=== PATIENT | male | born 1960 | race Two or more races ===

== ENCOUNTER 2024-08-16 12:55 | Emergency (ER) | payer MEDICAID, OTHER ==
[~2024-08-16] VITALS: Ht 172.7 cm; Wt 77.7 kg
--- NOTE | 2024-08-16 13:47 | DVH ---
EXAM: XY R KNEE 3V XRAY CLINICAL HISTORY: knee swellin COMPARISON: None TECHNIQUE: XY R KNEE 3V XRAY Findings/Impression: 3 views of the right knee. There is no evidence of an acute fracture, dislocation, blastic, or lytic lesions. No radiopaque foreign bodies. Moderate joint effusion.
[2024-08-16 14:36] VITALS: BP 141/86; PULSE 78; RESP 17; TEMP 98.4; O2SAT 97
[2024-08-16] MEDS ORDERED: PRED20TA2 PO (15:00)
[2024-08-16] MEDS ORDERED: COLC1CAP PO (15:00)
--- NOTE | 2024-08-16 15:00 | ED.PDOC ---
Musculoskeletal HPI Comments 58-year-old male presented to the [facility] complaining of right knee pain which is swollen for the past four days Chief Complaint: Lower Extremity Time Seen by MD: 13:38 Reviewed Notes: Nurses Notes, Medications, Allergies Allergies: Coded Allergies: NO KNOWN ALLERGIES (Unverified , 08/16/24) Home Meds Active Scripts Colchicine (Colchicine) 0.6 Mg Cap, 0.6 MG PO TID for 5 Days, #15 CAP Prov:LAUREL KEANE MD 08/16/24 Prednisone (Prednisone) 20 Mg Tab, 20 MG PO BID for 5 Days, #10 MG Prov:LAUREL KEANE MD 08/16/24 Information Source: Patient Mode of Arrival: Ambulatory Location: Right Extremity Location: Knee Timing: Days Severity: Moderate Able to Move Extremity: Yes Bear Weight: Limited Hand Dominance: Right Mechanism: No Trauma, Spontaneous Circumstances: Gout, Arthritis, Spontaneous Onset of Symptoms: Spontaneous Symptoms: Swelling, Pain, Warmth DVT Risk Factors: NONE History of: Gout, Arthritis Associated signs and symptoms: Swelling, Knee pain Past Medical History PAST MEDICAL HISTORY: Denies Surgical History (Other): Surgery Family History Family History: Reviewed,noncontributory to illness, No family hx of Cancer, No family hx of DM, No family hx of Heart glenn, No family hx of HTN, No family hx ofKidney glenn, No family hx of Liver glenn, No family hx of Lung glenn, No family hx of Stroke Social History Smoker: Cigarettes Alcohol: Denies ETOH Use Drugs: Denies Drug Use Lives In: Home Constitutional: denies: chills, diaphoresis, fatigue, fever, malaise, sweats, weakness, others EENTM: denies: blurred vision, double vision, ear bleeding, ear discharge, ear drainage, ear pain, ear ringing, eye pain, eye redness, hearing loss, mouth pain, mouth swelling, nasal discharge, nose bleeding, nose congestion, nose pain, photophobia, tearing, throat pain, throat swelling, voice changes, others Respiratory: denies: cough, hemoptysis, orthopnea, SOB at rest, shortness of breath, SOB with excertion, stridor, wheezing, others Cardiovascular: denies: chest pain, dizzy spells, diaphoresis, Dyspnea on exertion, edema, irregular heart beat, left arm pain, lightheadedness, palpitations, PND, syncope, others Gastrointestinal: denies: abdomen distended, abdominal pain, blood streaked bowels, constipated, diarrhea, dysphagia, difficulty swallowing, hematemesis, melena, nausea, poor appetite, poor fluid intake, rectal bleeding, rectal pain, vomiting, others Genitourinary: denies: burning, dysuria, flank pain, frequency, hematuria, incontinence, penile discharge, penile sore, pain, testicle pain, testicle swelling, urgency, others Neurological: denies: dizziness, fainting, headache, left sided numbness, left sided weakness, numbness, paresthesia, pre-existing deficit, right sided nu mbness, right sided weakness, seizure, speech problems, tingling, tremors, weakness, others Musculoskeletal: reports: gout, joint pain, joint swelling; denies: back pain, muscle pain, muscle stiffness, neck pain, others Integumetry: denies: bruises, change in color, change in hair/nails, dryness, laceration, lesions, lumps, rash, wounds, others Allergic/Immunocompromised: denies: Difficulty Healing, Frequent Infections, Hives, Itching, others Hematologic/Lymphatic: denies: anemia, blood clots, easy bleeding, easy bruising, swollen glands, others Endocrine: denies: excessive hunger, excessive sweating, excessive thirst, excessive urination, flushing, intolerance to cold, intolerance to heat, unexplained weight gain, unexplained weight loss, others Psychiatric: denies: anxiety, bipolar disorder, depression, hopeless, panic disorder, schizophrenia, sleepless, suicidal, others All Other Systems: Reviewed and Negative Physical Exam General Appearance: Mild Distress, Moderate Distress HEENT: Normal ENT Inspection, PERRL/EOMI Neck: Full Range of Motion, Non-Tender, Normal, Normal Inspection Respiratory: Chest Non-Tender, Lungs Clear, No Accessory Muscle Use, No Respiratory Distress, Normal Breath Sounds Cardiovascular: No Edema, No JVD, No Murmur, No Gallop, Normal Peripheral Pulses, Regular Rate/Rhythm Breast Exam: Deferred Gastrointestinal: No Organomegaly, Non Tender, No Pulsatile Mass, Normal Bowel Sounds, Soft Genitalia: Deferred Pelvic: Deferred Rectal: Deferred Extremities: Decreased range of motion, Inflammation, Swelling, Tender Musculoskeletal : Location: Right Extremity Location: Knee Apperance: Swelling, Limited ROM, Tenderness: Moderate Neurologic: Alert, call out operator II-XII nml as Tested, No Motor Deficits, Normal Affect, Normal Mood, No Sensory Deficits Cerebellar Function: Normal Reflexes: Normal Skin: Dry, Normal Color, Warm Peripheral Pulses: 1+ carotid (R), 1+ carotid (L) Lymphatic: No Adenopathy Was a procedure done? Was a procedure done?: No Differential Diagnosis EXT Differential Diagnosis: Gout, DJD, Contusion, Arthritis, Bursitis X-Ray, Labs, Meds, VS Vital Signs Date Time Temp Pulse Resp B/P (MAP) Pulse Ox O2 Delivery O2 Flow Rate FiO2 08/16/24 14:36 78 17 97 Room Air 08/16/24 14:36 98.4 67 16 141/86 (104) 97 98.4 08/16/24 13:12 97.6 97 18 140/86 (104) 98 97.6 X-Ray, Labs, Meds, VS Comment Patient came in complaining of right knee pain ambulating with crutches the pain is moderate to severe and possibly history of The x-rays shows joint effusion Patient will be discharged with a diagnosis of acute gouty arthritis Time of 1ST Reevaluation: 13:31 Reevaluation 1ST: Unchanged Reevaluation 2ND: Unchanged Consultation: PCP Patient Education/Counseling: Diagnosis, Treatment, Prognosis, Need For Follow Up Family Education/Counseling: Diagnosis, Treatment, Prognosis, Need For Follow Up, No Family Present Departure 1 Departure Time of Disposition: 14:58 Impression: Primary Impression: Gouty arthritis of right knee Disposition: 01 HOME / SELF CARE / HOMELESS Condition: Fair Additional Instructions: Use an Joseluis wrap and follow up with your PCP e-Prescriptions Colchicine (Colchicine) 0.6 Mg Cap 0.6 MG PO TID for 5 Days, #15 CAP Prov: LAUREL KEANE MD 08/16/24 Prednisone (Prednisone) 20 Mg Tab 20 MG PO BID for 5 Days, #10 MG Prov: LAUREL KEANE MD 08/16/24 Discharged With: Self Critical Care Note Critical Care Time?: No Stability Stability form required: No Heart Score Heart Score: Heart Score Response (Comments) Value History N/A 0 EKG N/A 0 Age >65 2 Risk Factors 1 or 2 risk factors 1 Troponin N/A 0 Total 3 LAUREL KEANE MD Aug 16, 2024 15:00
== END 2024-08-16 15:09 | disposition home or self-care (01) ==
LOC: ER 12:55
DX: M10.9 Gout, unspecified (principal); F17.210 Nicotine dependence, cigarettes, uncomplicated; Z79.52 Long term (current) use of systemic steroids; Z79.899 Other long term (current) drug therapy
CPT/HCPCS: 73562